=== PATIENT | male | born 1960 ===

== ENCOUNTER 2023-05-20 11:29 | Inpatient (IN) ==
[2023-05-20] MEDS: ACETAMINOPHEN 325 MG TAB PO STA ×2 (12:15→17:39)
[2023-05-20] MEDS: SODIUM CHLORIDE 0.9% 500 ML IV STA (12:16)
--- NOTE | 2023-05-20 12:39 | XRay Report ---
XR chest 1V portable CLINICAL HISTORY: Sepsis TECHNIQUE: Single frontal radiograph of the chest was obtained. Comparison: None available at the time of this dictation. FINDINGS: No lines and tubes are seen. The cardiomediastinal silhouette is normal. The lungs are clear. No evid ence of pleural effusion or pneumothorax. IMPRESSION: No acute abnormalities and in particular no radiographic evidence of pneumonia. ACT 112: Negative or not required by law. Electronically signed by: Carlos Garrison M.D. 05/20/2023 12:38 PM
--- NOTE | 2023-05-20 12:44 | Emergency Department Note ---
Impression & Plan Cellulitis ED Provider Note ED Provider Note NAME: ROSA LEDESMA AGE:62 SEX: Male : 1960 ARRIVES VIA: Private vehicle INFORMANT: Patient ED PROVIDER(s): Marline Cabrales DO CHIEF COMPLAINT: Cellulitis HPI: This is a 62-year-old male presents emergency department due to concern for cellulitis of the left lower extremity. Patient states he has had this several times before. Patient states he felt fine yesterday, and at 4 AM awoke with chills. He states he then felt very tired and then developed a fever in the machine tailer hours between 6 and 630. He states he then began to notice that his left lower extremity was getting red. He states this is the same area where he has had cellulitis previously. He denies any recent trauma or injury. He denies any change in activity. He states the last time he had a lower extremity cellulitis he took Bactrim. He denies any history of MRSA and states he is not a diabetic. PAST MEDICAL HISTORY:See Below PAST SURGICAL HISTORY:See Below FAMILY HISTORY:See Below SOCIAL HISTORY:See Below HOME MEDICATIONS:See Below ALLERGIES:See Below VITALS:See Below PHYSICAL EXAMINATION: GENERAL: alert, well appearing, well nourished, no distress, non-toxic EYE EXAM: normal conjunctiva, PERRL and EOM's grossly intact OROPHARYNX: no exudate, no erythema, lips, buccal mucosa, and tongue normal and mucous membranes are moist NECK: supple, no nuchal rigidity, no adenopathy, non-tender LUNGS: Clear to auscultation. Normal chest wall mechanics, no w/r/r HEART: no murmurs, S1 normal and S2 normal ABDOMEN: abdomen soft, non-tender, normo-active bowel sounds, no masses, no rebound or guarding. SKIN: no rashes, petechiae, orbruising UPPER EXTREMITIES: upper extremities are grossly normal. FROM, nml pulses b/l. LOWER EXTREMITIES: No pitting edema. FROM, nml pulses b/l. NEURO EXAM: Normal sensorium, cranial nerves II-XII grossly intact, normal speech, no facial droop,nogross weakness of arms, no gross weakness of legs. Gross sensation intact. No ataxia. Vital Signs: reviewed and remarkable Differential Diagnosis: cellulitis, abscess, MRSA infection, DVT, necrotizing fasciitis, dermatitis, drug eruption, as well as others were entertained. MEDICAL DECISION MAKING: This is a 62-year-old male who presents due to concern for evolving cellulitis which she has had previously. Patient initially noticed to be febrile and tachycardic on presentation although he denied pain. I suspect his tachycardia was related to his fever. He was otherwise hemodynamically stable. Labs drawn and sent, IV established, EKG performed at bedside and interpreted by me. Patient with obvious cellulitis noted to the anterior aspect of the left lower extremity. This was outlined with a sterile marking pen and recheck frequently to monitor for any changes. Patient had no evidence of any joint involvement or effusion, no evidence of lymphangitic streaking. His heart rate did improve with IV fluids and Tylenol. He was noted to have significant leukocytosis and a procalcitonin was added. This was also markedly elevated. In light of this and concern for evolving sepsis, case discussed with hospitalist team for additional evaluation and management. Patient had been given IV Rocephin here initially. Patient did receive 2 L of IV fluids initially here and then additional maintenance fluids were added to equal a total of 30 mL/KG based on ideal body weight. Consultation(s): 1625: Discussed with Dr. Vegas, [facility] hospitalist team, for additional evaluation and management. ER Treatment Provided: See below Diagnostics Interpreted By Me: -ECG: Sinus tachycardia 101, normal axis, normal intervals, Q waves noted in lead III, and V3, no other acute ischemic changes no -Cardiac Monitoring: An order was placed for continuous cardiac monitoring. The monitor shows a rate of 106 with sinus tachycardia rhythm. -Laboratory studies: As stated above and show below. -Imaging studies: Triage Nursing Note Reviewed Prior/Outside Records Reviewed Past Med/Surg History Medical History Open wound of right ankle Prediabetes CKD stage G3a/A1, GFR 45-59 and albumin creatinine ratio <30 mg/g Venous insufficiency Renal insufficiency Left leg cellulitis Localized osteoarthritis of left knee Localized osteoarthritis of knee Abscess of left leg Tick bite Colon cancer screening Prostate cancer screening Annual physical exam Generalized osteoarthritis Dyshidrosis Allergic rhinitis BPH (benign prostatic hyperplasia) Benign essential hypertension Hypercholesterolemia Surgical History H/O oral surgery History of colonoscopy Family History Mother Asthma Diabetes Father Congestive heart failure (CHF) CAD (coronary atherosclerotic disease) Hypertension Social History Smoking Status: Never smoker Second Hand Exposure: No; Do You Dip or Chew Tobacco: No; Hx Alcohol Use: Yes Alcohol type: beer Hx Substance Use: No Preferred Language: Sami Communication Ability: Effective Line Up Worker Required: No Beliefs That Will Affect Care: None Current Living Situation: Spouse Other Information That Helps Us Care for You: No Feels Safe at Home: Yes Safety Concerns: Feels Safe At This Time Assistive Devices: Denture - Upper Allergies Allergies Allergy/AdvReac Type Severity Reaction Status Date / Time No Known Drug Allergies Allergy Verified 05/20/23 15:51 Home Meds Previous Rx's Medication Instructions Recorded triamcinolone acetonide 0.1 % 1 applic topical BID PRN skin 07/09/22 topical cream irritation #30 grams metoprolol tartrate 50 mg tablet 75 mg (1.5 x 50 mg) PO BID #270 01/28/23 tabs Results & Data (ED) Vital Signs Vital Signs - 24 hr 05/20/23 11:46 05/20/23 12:23 05/20/23 13:10 Temperature 38.2 C H Temperature Source Temporal Artery Scan Pulse Rate 113 H 100 H Pulse Rate [Apical] 97 H Respiratory Rate 16 20 Respiratory Effort / Characteristics Non-Labored Respiratory Depth Normal Blood Pressure 125/64 Blood Pressure [Right Arm] 137/86 Blood Pressure Mean 84 Blood Pressure Mean [Right Arm] 103 Pulse Oximetry 94 96 Oxygen Delivery Method Room Air Sepsis Recent Fever Within 48 Hours Yes Sepsis New/Unexplained Change in Mental Status No Sepsis Action Taken by Nursing Physician Notified 05/20/23 14:29 05/20/23 15:00 05/20/23 16:22 Temperature 37 C Temperature Source Oral Pulse Rate 64 Pulse Rate [Apical] 93 H Respiratory Rate 18 Respiratory Effort / Characteristics Respiratory Depth Blood Pressure Blood Pressure [Right Arm] 125/78 Blood Pressure Mean Blood Pressure Mean [Right Arm] 93 Pulse Oximetry 94 Oxygen Delivery Method Room Air Sepsis Recent Fever Within 48 Hours Sepsis New/Unexplained Change in Mental Status Sepsis Action Taken by Nursing Laboratory Data 05/20/23 12:07 05/20/23 12:07 Lab Results 05/20/23 05/20/23 Range/Units 12:07 16:35 WBC 20.65 H (4.8-10.8) K/ul RBC 6.09 (4.70-6.10) M/uL Hgb 17.6 (14.0-18.0) g/dl Hct 49.8 (42.0-52.0) % MCV 81.8 (80.0-100.0) fL MCH 28.9 (25.0-34.0) pg MCHC 35.3 (32.0-36.0) g/dL RDW Std Deviation 39.8 (36.4-46.3) fL RDW Coeff of Chuck 13.5 (11.5-14.5) % Plt Count 280 (130-400) K/uL MPV 10.2 (9.4-12.4) fL Immature Gran % (Auto) 0.7 % Neut % (Auto) 90.3 % Lymph % (Auto) 3.1 % Liberty % (Auto) 5.6 % Eos % (Auto) 0.0 % Baso % (Auto) 0.3 % Neut # (Auto) 18.63 H (1.40-6.50) K/uL Lymph # (Auto) 0.64 L (1.20-3.40) K/uL Liberty # (Auto) 1.16 H (0.11-0.59) K/uL Eos # (Auto) 0.00 (0.00-0.50) K/uL Baso # (Auto) 0.07 (0.00-0.20) K/uL Immature Gran # (Auto) 0.15 (0.01-0.20) K/uL PT 10.9 (9.0-12.0) Seconds INR 1.0 (0.9-1.1) APTT 28 (21-31) Seconds PTT Ratio 1.0 Sodium 135 L (136-145) mmol/L Potassium 4.0 (3.5-5.1) mmol/L Chloride 98 (98-107) mmol/L Carbon Dioxide 27 (21-32) mmol/L Anion Gap 10 (3-11) BUN 17 (6-23) mg/dl Creatinine 1.42 H (0.6-1.4) mg/dl Est Cr Clr Drug Dosing 69.0 ml/min Est GFR ( Amer) 60.9 ml/min Est GFR (Non-Af Amer) 52.6 ml/min BUN/Creatinine Ratio 12.0 (10-20) Glucose 161 H (70-99(Fasting)) mg/dl Lactate 1.9 1.9 (0.4-2.0) mmol/L Calcium 9.9 (8.6-10.3) mg/dl Magnesium 1.7 (1.7-2.4) mg/dl Total Bilirubin 1.4 H (0.2-1.0) mg/dl AST 29 (13-39) U/L ALT 42 (7-52) U/L Alkaline Phosphatase 44 (34-104) U/L Troponin I High Sens 8.6 (0-20) pg/ml Total Protein 8.8 H (6.0-8.3) gm/dl Albumin 5.0 (3.4-5.0) gm/dl Globulin 3.8 (2.5-4.0) gm/dl Albumin/Globulin Ratio 1.3 (0.9-2) Procalcitonin 1.29 H (0-0.5) ng/ml Administered Medications Enoxaparin Sodium (Enoxaparin Inj 40 Mg/0.4 Ml Syr) 40 mg SQ Q24H LIZA Stop: 06/19/23 20:59 Last Admin: 05/20/23 19:52 Dose: 40 mg Documented By: SJR Parenteral Electrolytes (Plasma-Lyte A Ph 7.4) 1,000 mls @ 100 mls/hr IV .Q10H LIZA Stop: 05/21/23 03:14 Last Admin: 05/20/23 19:53 Dose: 100 mls/hr Documented By: SJR Metoprolol Tartrate (Metoprolol Tartrate 25 Mg Tab) 75 mg PO BID LIZA Stop: 06/19/23 20:59 Last Admin: 05/20/23 19:52 Dose: 75 mg Documented By: SJR Discontinued Medications Acetaminophen (Acetaminophen 325 Mg Tab) 650 mg PO NOW STA Stop: 05/20/23 11:51 Last Admin: 05/20/23 12:15 Dose: 650 mg Documented By: SHIRAG Acetaminophen (Acetaminophen 325 Mg Tab) 650 mg PO NOW STA Stop: 05/20/23 17:35 Last Admin: 05/20/23 17:39 Dose: 650 mg Documented By: LETI Sodium Chloride (Nss) 500 mls @ 999 mls/hr IV .Q31M STA Stop: 05/20/23 12:20 Last Infusion: 05/20/23 12:53 Dose: Infused Documented By: Admin: 05/20/23 12:16 Dose: 999 mls/hr Documented By: LETI Ceftriaxone Sodium (Rocephin) 2,000 mg in 50 mls @ 100 mls/hr IV NOW STA Stop: 05/20/23 13:10 Last Infusion: 05/20/23 14:14 Dose: Infused Documented By: MMYoselin Admin: 05/20/23 13:07 Dose: 100 mls/hr Documented By: LETI Acetaminophen (Ofirmev) 1,000 mg in 100 mls @ 400 mls/hr IV NOW STA Stop: 05/20/23 13:03 Last Admin: 05/20/23 12:52 Dose: Not Given Documented By: LETI Sodium Chloride (Nss) 1,000 mls @ 999 mls/hr IV .Q1H1M ONE Stop: 05/20/23 14:39 Last Infusion: 05/20/23 15:33 Dose: Infused Documented By: Admin: 05/20/23 14:25 Dose: 999 mls/hr Documented By: LETI Sodium Chloride (Nss) 1,000 mls @ 999 mls/hr IV .Q1H1M ONE Stop: 05/20/23 18:05 Last Infusion: 05/20/23 18:56 Dose: Infused Documented By: Admin: 05/20/23 17:39 Dose: 999 mls/hr Documented By: LETI Ibuprofen (Ibuprofen 200 Mg Tab) 200 mg PO NOW STA Stop: 05/20/23 17:04 Last Admin: 05/20/23 17:36 Dose: Not Given Documented By: LETI Imaging Data Radiologist's Impression: Chest X-Ray 05/20/23 11:50 XR chest 1V portable CLINICAL HISTORY: Sepsis TECHNIQUE: Single frontal radiograph of the chest was obtained. Comparison: None available at the time of this dictation. FINDINGS: No lines and tubes are seen. The cardiomediastinal silhouette is normal. The lungs are clear. No evidence of pleural effusion or pneumothorax. IMPRESSION: No acute abnormalities and in particular no radiographic evidence of pneumonia. ACT 112: Negative or not required by law. Electronically signed by: Carlos Garrison M.D. 05/20/2023 12:38 PM Discharge Plan Visit Data Chief Complaint: Infection Stated Complaint: INFECTED L LEG/FEVER ED Provider: Marline Cabrales Discharge Problem: Cellulitis Patient Disposition: Admitted As Inpatient Discharge Instructions Interventions: ED Discharge Assessment Last Done: 05/20/23 18:09
[2023-05-20 12:47] LABS: Partial Thromboplastin Time 28 Seconds (21-31); Prothrombin Time 10.9 Seconds (9.0-12.0)
[2023-05-20] MEDS: ACETAMINOPHEN 1,000 MG/100 ML VIAL IV STA (12:52)
[2023-05-20 13:07] LABS: Albumin Globulin Ratio 1.3 (0.9-2); Bilirubin,Total 1.4 mg/dl (0.2-1.0); Calcium 9.9 mg/dl (8.6-10.3); Est GFR (African American) 60.9 ml/min; Est GFR (Non-African American) 52.6 ml/min; Globulin 3.8 gm/dl (2.5-4.0); Magnesium 1.7 mg/dl (1.7-2.4); Total Protein 8.8 gm/dl (6.0-8.3)
[2023-05-20] MEDS: cefTRIAXone SODIUM 2,000 MG/50 ML BAG IV STA (13:07)
[2023-05-20 13:12] LABS: Troponin I High Sensitivity 8.6 pg/ml (0-20)
[2023-05-20 13:19] LABS: Hematocrit (blood only) 49.8 % (42.0-52.0); Hemoglobin 17.6 g/dl (14.0-18.0); Mean Corpuscular Hemoglobin 28.9 pg (25.0-34.0); Mean Corpuscular Hgb Conc 35.3 g/dL (32.0-36.0); Mean Corpuscular Volume 81.8 fL (80.0-100.0); Mean Platelet Volume 10.2 fL (9.4-12.4); Platelet Count 280 K/uL (130-400); RDW Coefficient of Variation 13.5 % (11.5-14.5); RDW Standard Deviation 39.8 fL (36.4-46.3); Red Blood Count 6.09 M/uL (4.70-6.10); White Blood Count 20.65 K/ul (4.8-10.8)
[2023-05-20 13:53] LABS: Basophils # (auto) 0.07 K/uL (0.00-0.20); Basophils % (auto) 0.3 %; Immature Granulocytes # (auto) 0.15 K/uL (0.01-0.20); Immature Granulocytes % (auto) 0.7 %; Lymphocytes # (auto) 0.64 K/uL (1.20-3.40); Lymphocytes % (auto) 3.1 %; Monocytes # (auto) 1.16 K/uL (0.11-0.59); Monocytes % (auto) 5.6 %; Neutrophils # (auto) 18.63 K/uL (1.40-6.50); Neutrophils % (auto) 90.3 %
[2023-05-20] MEDS: SODIUM CHLORIDE 0.9% 1,000 ML IV ONE ×2 (14:25→17:39)
--- NOTE | 2023-05-20 16:54 | History & Physical Report ---
Date of Service May 20, 2023 Assessment & Plan (1) Sepsis: Plan: -Admit to med/tele -Currently stable -Presented to the ED with acute onset of left leg cellulitis, fever, and chills at 0400 this am -Has remained stable in the ED but met sepsis criteria with fever of 38.2C, tachycardia of 113, leukocytosis of 20K, and source being his LLE cellulitis -Lactate is WNL, procal elevated at 1.29 -Received 1.5L NSS, a dose of Ceftriaxone, and 1gm IV tylenol in the ED -Will conitnue with Ceftriaxone at this time as patient and his report some improvement in the LLE cellulitis since receiving his first dose in the ED -Will give another 1L NSS now, then will start maintenance Plasmalyte x 1 bag for now -Continue prn tylenol for pain/fever -Follow blood cultures obtained in the ED -Border marked by ED staff, continue to monitor -SQ lovenox for DVT PPX -HH diet -AM CBC, BMP (2) Left leg cellulitis: Plan: -See sepsis (3) Benign essential hypertension: Plan: -Can continue metoprolol as he is hemodynamically stable Plan The patient was discussed with Dr. Vegas at the time of admission History of Present Illness Chief Complaint: Left leg swelling, fever, chills Primary Care Provider: Tigre Robledo MD Terry is a 62 year old male with a PMH significant for recurrent left LE cellulitis, prediabetes, HTN who presented to the [facility] ED on 05/20/23 with acute onset of left LE swelling/erythema/pain, fever, and chills which woke him from sleep at 0400 this am. On arrival to the ED he was noted to be febrile at 38.2C and tachycardic at 113 but was otherwise stable. Labs were significant for a leukocytosis of 20 with neutrophile predominance of 18, lactate of 1.9, and procal of 1.29. Chest xray was read as negative for acute findings. Prior to admission the patient was given 2gm Ceftriaxone, 1.5L NSS, and 1gm IV tylenol. At the time of the exam the patient was sitting in bed, with rigors, but in no acute distress. History was obtained from the patient and his who is bedside. They confirm the above history. This is the 5th or 6th time that he has had cellulitis in the LLE but he has never required hospitalization. He did have a spider bite in the LLE, near the site of infection years ago. He had an abscess drained and packed after the spider bite with his PCP. They sate that the area of cellulitis today is improving after receiving the first dose of Ceftriaxone. Denies current chest pain, SOB, abd pain, nausea, vomiting, diarrhea, dysuria, hematuria, melena, and recent trauma. He is a Full code. Please refer to Dr Vegas's attestation for any changes to the treatment plan Allergies Allergy/AdvReac Type Severity Reaction Status Date / Time No Known Drug Allergies Allergy Verified 05/20/23 15:51 Home Medications Medication Instructions Recorded Confirmed Type triamcinolone acetonide 0.1 % 1 applic topical BID PRN skin 07/09/22 05/20/23 Rx topical cream irritation #30 grams metoprolol tartrate 50 mg tablet 75 mg (1.5 x 50 mg) PO BID #270 01/28/23 05/20/23 Rx tabs Past Med/Surg History Medical History Open wound of right ankle Prediabetes CKD stage G3a/A1, GFR 45-59 and albumin creatinine ratio <30 mg/g Venous insufficiency Renal insufficiency Left leg cellulitis Localized osteoarthritis of left knee Localized osteoarthritis of knee Abscess of left leg Tick bite Colon cancer screening Prostate cancer screening Annual physical exam Generalized osteoarthritis Dyshidrosis Allergic rhinitis BPH (benign prostatic hyperplasia) Benign essential hypertension Hypercholesterolemia Surgical History H/O oral surgery History of colonoscopy Family History Mother Asthma Diabetes Father Congestive heart failure (CHF) CAD (coronary atherosclerotic disease) Hypertension Social History Smoking Status: Never smoker Second Hand Exposure: No; Do You Dip or Chew Tobacco: No; Hx Alcohol Use: Yes Alcohol type: beer Hx Substance Use: No Preferred Language: Guyanese Communication Ability: Effective Film Maker Required: No Beliefs That Will Affect Care: None Current Living Situation: Spouse Other Information That Helps Us Care for You: No Feels Safe at Home: Yes Safety Concerns: Feels Safe At This Time Assistive Devices: Denture - Upper Physical Exam Physical Exam: Physical Exam: General: In no acute distress, stated age, ill appearing with rigors but non- toxic HEENT: Normocephalic, atraumatic, no scleral icterus, pupils around round, symmetrical, and reactive to light, dry mucus membranes, trachea midline, no thyromegaly Chest/Pulm: No respiratory distress, symmetrical chest expansion, clear breath sounds throughout Cardiac: RRR, no murmurs noted Abdomen: Negative for ascites and bruising, normoactive bowel sounds, soft, non-tender to palpation throughout Musculoskeletal: Symmetrical and without signs of acute trauma, upper and lower extremities with full ROM, no atrophy, spasticity, or flaccidity Extremities: Radial, dorsalis pedis, and posterior tibial pulses are intact and symmetrical, no edema noted in the BL LE's Skin: Patient with erythema over the lateral portion of the left conner which was outlined by by the ED staff and has not spread further at this time, erythema does not extend into the left ankle or left knee Neuro: Alert and oriented to person, place, month, year, and president, no focal defects, current tremors due to fever Psych: No acute distress, calm and cooperative during the exam Results & Data Results & Data Vital Signs (Past 12 Hours) Vital Signs Temp Pulse Pulse Resp BP BP Pulse Ox 05/20/23 16:22 64 05/20/23 15:00 93 H 18 125/78 94 05/20/23 14:29 37 C 05/20/23 13:10 97 H 20 137/86 96 05/20/23 12:23 100 H 05/20/23 11:46 38.2 C H 113 H 16 125/64 94 O2 Del Method 05/20/23 16:22 05/20/23 15:00 Room Air 05/20/23 14:29 05/20/23 13:10 Room Air 05/20/23 12:23 05/20/23 11:46 Laboratory Results Abnormal lab results 05/20/23 Range/Units 12:07 WBC 20.65 H (4.8-10.8) K/ul Neut # (Auto) 18.63 H (1.40-6.50) K/uL Lymph # (Auto) 0.64 L (1.20-3.40) K/uL Craig # (Auto) 1.16 H (0.11-0.59) K/uL Sodium 135 L (136-145) mmol/L Creatinine 1.42 H (0.6-1.4) mg/dl Glucose 161 H (70-99(Fasting)) mg/dl Total Bilirubin 1.4 H (0.2-1.0) mg/dl Total Protein 8.8 H (6.0-8.3) gm/dl Procalcitonin 1.29 H (0-0.5) ng/ml Diagnostic Findings Chest X-Ray 05/20/23 11:50 XR chest 1V portable CLINICAL HISTORY: Sepsis TECHNIQUE: Single frontal radiograph of the chest was obtained. Comparison: None available at the time of this dictation. FINDINGS: No lines and tubes are seen. The cardiomediastinal silhouette is normal. The lungs are clear. No evidence of pleural effusion or pneumothorax. IMPRESSION: No acute abnormalities and in particular no radiographic evidence of pneumonia. ACT 112: Negative or not required by law. Electronically signed by: Carlos Garrison M.D. 05/20/2023 12:38 PM ECG Additional Comments: Sinus tachycardia Inferior infarct , age undetermined Anterior infarct , age undetermined Abnormal ECG No previous ECGs available Code Status & VTE Plan Code Status Full code VTE Prophylaxis Plan VTE Prophylaxis will be ordered: Yes Supervising Physician Co-Signing Physician Notes I personally saw and examined the patient. I verified all nichole points and agree with Mitchel Izquierdo PA-C with the following exceptions and/or additions: 62 year old male presents to the ER with fever, chills, left leg erythema. 5-6 prior episodes resolved with antibiotics although this is the worst occasion. Last episode in August last year. No known MRSA. Reportedly already minimally improved since starting ceftriaxone in the ER. O/E A&Ox2, HS increased rate, regular rhythm, no murmurs, Chest CTAB, Abdo SNT, left lower extremity erythema/warmth/swelling outlined A/P Sepsis - source cellulitis, UA not yet collected. No history of MRSA and possibly some improvement already with ceftriaxone therefore will continue on this alone since he is hemodynamically stable. Follow up blood cultures. PG Care Time/CCT Total # of Minutes Spent Total Time Spent with Patient: Total time spent is greater than 50% in coordination of care (as documented) at patient's floor/unit and/or counseling patient: [place] [address] INT INP/OBS CARE MIN Patient Type Established Medical Decision Making High Complexity Diagnoses Sepsis A41.9 Left leg cellulitis L03.116 Benign essential hypertension I10
[2023-05-20] MEDS: IBUPROFEN 200 MG TAB PO STA (17:36)
[2023-05-20] MEDS: ENOXAPARIN INJ 40 MG/0.4 ML SYR SQ SCH (19:52)
[2023-05-20] MEDS: METOPROLOL TARTRATE 25 MG TAB PO SCH (19:52)
[2023-05-20] MEDS: PLASMA-LYTE A 1,000 ML IV SCH (19:53)
[2023-05-21 07:09] LABS: Basophils # (auto) 0.04 K/uL (0.00-0.20); Basophils % (auto) 0.3 %; Eosinophils # (auto) 0.02 K/uL (0.00-0.50); Eosinophils % (auto) 0.1 %; Hemoglobin 14.6 g/dl (14.0-18.0); Immature Granulocytes # (auto) 0.06 K/uL (0.01-0.20); Immature Granulocytes % (auto) 0.4 %; Lymphocytes # (auto) 1.27 K/uL (1.20-3.40); Lymphocytes % (auto) 9.5 %; Mean Corpuscular Hemoglobin 28.3 pg (25.0-34.0); Mean Corpuscular Volume 83.5 fL (80.0-100.0); Mean Platelet Volume 9.9 fL (9.4-12.4); Monocytes # (auto) 1.17 K/uL (0.11-0.59); Monocytes % (auto) 8.7 %; Neutrophils # (auto) 10.87 K/uL (1.40-6.50); Platelet Count 224 K/uL (130-400); RDW Coefficient of Variation 13.6 % (11.5-14.5); RDW Standard Deviation 41.5 fL (36.4-46.3); Red Blood Count 5.15 M/uL (4.70-6.10); White Blood Count 13.43 K/ul (4.8-10.8)
[2023-05-21 07:10] LABS: BUN Creatinine Ratio 11.1 (10-20); Calcium 8.9 mg/dl (8.6-10.3); Creatinine Clr Calc Pharmacy 68.3 ml/min; Est GFR (African American) 59.9 ml/min; Est GFR (Non-African American) 51.7 ml/min; Potassium 3.8 mmol/L (3.5-5.1)
[2023-05-21 08:59] LABS: Estimated Average Glucose 134 mg/dl; Hemoglobin A1C 6.3 % (4.5-5.6)
[2023-05-21] MEDS: ACETAMINOPHEN 325 MG TAB PO PRN (11:52)
[2023-05-21] MEDS: cefTRIAXone SODIUM 2,000 MG in DEXTROSE 5 % MINI-B 50 ML IV SCH (12:36)
--- NOTE | 2023-05-21 15:52 | Hospitalist Progress Note ---
Date of Service May 21, 2023 Assessment & Plan (1) Sepsis: Plan: -Presented to the ED with acute onset of left leg cellulitis, fever, and chills at 0400 this am -Has remained stable in the ED but met sepsis criteria with fever of 38.2C, tachycardia of 113, leukocytosis of 20K, and source being his LLE cellulitis -Lactate is WNL, procal elevated at 1.29 -Received 1.5L NSS, a dose of Ceftriaxone, and 1gm IV tylenol in the ED -Continue ceftriaxone Clinically improving Discontinue IV fluid -Continue prn tylenol for pain/fever -Follow blood cultures obtained in the ED -Improving cellulitis Improving leukocytosis. White count down from 20-13 Ordered A1c (2) Left leg cellulitis: Plan: -See sepsis (3) Benign essential hypertension: Plan: -Can continue metoprolol as he is hemodynamically stable Admission and Anticipated Discharge Date Admission Date: May 20, 2023 Subjective Patient feels better. Leg swelling and redness is improving. Review of Systems Review of Systems: All systems reviewed & are unremarkable except as noted in Subjective Physical Exam Physical Exam: General: Awake, conversant Heart: S1, S2/regular rate and rhythm, no murmur rubs or gallops Lungs: Clear to auscultation bilaterally. Normal effort Abdomen: Soft/nontender/nondistended. No hepatosplenomegaly Extremities: No clubbing/cyanosis. Left leg cellulitis improving, fading redness and improving edema Behavior: Appropriate, cooperative Results & Data Results & Data Vital Signs (Past 12 Hours) Vital Signs Temp Pulse Pulse Resp BP Pulse Ox O2 Del Method 05/21/23 15:22 79 05/21/23 11:42 37.9 C H 84 16 126/78 96 Room Air 05/21/23 08:00 95 H 05/21/23 07:39 38.0 C H 97 H 16 163/74 H 95 Room Air Laboratory Results Abnormal lab results 05/21/23 Range/Units 05:35 WBC 13.43 H (4.8-10.8) K/ul Neut # (Auto) 10.87 H (1.40-6.50) K/uL Andrews # (Auto) 1.17 H (0.11-0.59) K/uL Sodium 132 L (136-145) mmol/L Creatinine 1.44 H (0.6-1.4) mg/dl Glucose 135 H (70-99(Fasting)) mg/dl Hemoglobin A1c 6.3 H (4.5-5.6) % PG Care Time/CCT Total # of Minutes Spent Total Time Spent with Patient: Total time spent is greater than 50% in coordination of care (as documented) at patient's floor/unit and/or counseling patient: Coding Level of Care Code 58171 SUB INP/OBS CARE 2/35MIN Diagnoses Sepsis A41.9 Left leg cellulitis L03.116 Benign essential hypertension I10
[2023-05-22 06:12] LABS: Basophils # (auto) 0.05 K/uL (0.00-0.20); Basophils % (auto) 0.5 %; Eosinophils % (auto) 2.2 %; Hematocrit (blood only) 43.5 % (42.0-52.0); Hemoglobin 15.1 g/dl (14.0-18.0); Immature Granulocytes # (auto) 0.04 K/uL (0.01-0.20); Immature Granulocytes % (auto) 0.4 %; Lymphocytes # (auto) 1.75 K/uL (1.20-3.40); Lymphocytes % (auto) 18.9 %; Mean Corpuscular Hemoglobin 28.9 pg (25.0-34.0); Mean Corpuscular Hgb Conc 34.7 g/dL (32.0-36.0); Mean Corpuscular Volume 83.2 fL (80.0-100.0); Mean Platelet Volume 9.9 fL (9.4-12.4); Monocytes # (auto) 0.96 K/uL (0.11-0.59); Monocytes % (auto) 10.4 %; Neutrophils # (auto) 6.25 K/uL (1.40-6.50); Neutrophils % (auto) 67.6 %; Platelet Count 212 K/uL (130-400); RDW Coefficient of Variation 13.8 % (11.5-14.5); RDW Standard Deviation 41.5 fL (36.4-46.3); Red Blood Count 5.23 M/uL (4.70-6.10); White Blood Count 9.25 K/ul (4.8-10.8)
[2023-05-22 06:24] LABS: BUN Creatinine Ratio 11.5 (10-20); Creatinine Clr Calc Pharmacy 75.1 ml/min; Est GFR (African American) 67.2 ml/min; Est GFR (Non-African American) 57.9 ml/min; Potassium 3.9 mmol/L (3.5-5.1)
--- NOTE | 2023-05-22 10:22 | Discharge Summary ---
Date of Service May 22, 2023 Admission HPI Per Admitting Provider Terry is a 62 year old male with a PMH significant for recurrent left LE cellulitis, prediabetes, HTN who presented to the [facility] ED on 05/20/23 with acute onset of left LE swelling/erythema/pain, fever, and chills which woke him from sleep at 0400 this am. On arrival to the ED he was noted to be febrile at 38.2C and tachycardic at 113 but was otherwise stable. Labs were significant for a leukocytosis of 20 with neutrophile predominance of 18, lactate of 1.9, and procal of 1.29. Chest xray was read as negative for acute findings. Prior to admission the patient was given 2gm Ceftriaxone, 1.5L NSS, and 1gm IV tylenol. At the time of the exam the patient was sitting in bed, with rigors, but in no acute distress. History was obtained from the patient and his who is bedside. They confirm the above history. This is the 5th or 6th time that he has had cellulitis in the LLE but he has never required hospitalization. He did have a spider bite in the LLE, near the site of infection years ago. He had an absces s drained and packed after the spider bite with his PCP. They sate that the area of cellulitis today is improving after receiving the first dose of Ceftriaxone. Denies current chest pain, SOB, abd pain, nausea, vomiting, diarrhea, dysuria, hematuria, melena, and recent trauma. He is a Full code. Please refer to Dr Vegas's attestation for any changes to the treatment plan Admission Exam Per Admitting Provider General: In no acute distress, stated age, ill appearing with rigors but non- toxic HEENT: Normocephalic, atraumatic, no scleral icterus, pupils around round, symmetrical, and reactive to light, dry mucus membranes, trachea midline, no thyromegaly Chest/Pulm: No respiratory distress, symmetrical chest expansion, clear breath sounds throughout Cardiac: RRR, no murmurs noted Abdomen: Negative for ascites and bruising, normoactive bowel sounds, soft, non- tender to palpation throughout Musculoskeletal: Symmetrical and without signs of acute trauma, upper and lower extremities with full ROM, no atrophy, spasticity, or flaccidity Extremities: Radial, dorsalis pedis, and posterior tibial pulses are intact and symmetrical, no edema noted in the BL LE's Skin: Patient with erythema over the lateral portion of the left conner which was outlined by by the ED staff and has not spread further at this time, erythema does not extend into the left ankle or left knee Neuro: Alert and oriented to person, place, month, year, and president, no focal defects, current tremors due to fever Psych: No acute distress, calm and cooperative during the exam Principal Diagnosis Sepsis due to left lower extremity cellulitis Prediabetes Discharge Exam General: Awake, conversant Heart: S1, S2/regular rate and rhythm, no murmur rubs or gallops Lungs: Clear to auscultation bilaterally. Normal effort Abdomen: Soft/nontender/nondistended. No hepatosplenomegaly Extremities: No clubbing/cyanosis. Left leg cellulitis improving, fading rednes s and improving edema Behavior: Appropriate, cooperative Discharge Data Allergies Allergy/AdvReac Type Severity Reaction Status Date / Time No Known Drug Allergies Allergy Verified 05/20/23 15:51 Hospital Course (1) Sepsis: -Presented to the ED with acute onset of left leg cellulitis, fever, and chills at 0400 this am -Has remained stable in the ED but met sepsis criteria with fever of 38.2C, tachycardia of 113, leukocytosis of 20K, and source being his LLE cellulitis -Lactate is WNL, procal elevated at 1.29 -Received 1.5L NSS, a dose of Ceftriaxone, and 1gm IV tylenol in the ED Switch to p.o. Keflex Clinically improving Blood cultures remain negative -Improving cellulitis .Leukocytosis resolved (2) Left leg cellulitis: -See sepsis (3) Benign essential hypertension: -Can continue metoprolol as he is hemodynamically stable (4) Prediabetes: A1c returned at 6.3 Explained to the patient that he is a prediabetic which predisposes him to recurrent cellulitis. Advised on lifestyle modification, weight loss Plan Discharge today Total Time Total Time Spent Total Time Spent (In Minutes): 35 Discharge Plan Discharge Items Patient Disposition: Home - Self-Care Reason For Visit: SEPSIS, LLE CELLULITIS Discharge Diagnosis: Sepsis due to left lower extremity cellulitis Prediabetes Activity: Resume your previous activity Non-emergency contact: Primary Care Provider Call non-emergency contact if: you have any medication questions and your symptoms worsen Follow-up/Referrals: Tigre Robledo MD [Primary Care Provider] - 06/01/23 11:30 am Diet: Carb Consistent or DM2 Addtl Attending Provider Instructions: Advised to note that you have cellulitis and will be discharged on oral antibiotics to complete the course Advised to note that you are now prediabetic with a HbA1c of 6.3. This means that you will need to make lifestyle modification with diet and exercise as you are heading towards being a diabetic patient Being a prediabetic predisposes you to recurrent cellulitis. Pending Studies at Discharge: No Stand-Alone Forms: My [facility] Medications and DC Order Prescriptions: New cephalexin 500 mg capsule 500 mg PO BID 5 Days Qty: 10 0RF Continued metoprolol tartrate 50 mg tablet 75 mg PO BID Qty: 270 3RF triamcinolone acetonide 0.1 % cream 1 applic topical BID PRN (Reason: skin irritation) Qty: 30 5RF Discharge Orders: Discharge Order (Routine); Ordered 05/22/23 Ordered By: Kenny Murillo/Other Patient Handouts: Prediabetes, 5 Steps for Eating Healthier Admission Data Admit Date/Time: 05/20/23 16:53 Attending Provider: Kenny Dinh Admit Provider: Joshua Vegas Primary Care Provider: Tigre Robledo Other Interventions: Discharge Summary Assessment (RN) Last Done: 05/22/23 11:22 Coding Level of Care Code 20664 INP/OBS DISCH >30 MIN Diagnoses Sepsis A41.9 Left leg cellulitis L03.116 Benign essential hypertension I10 Prediabetes R73.03
--- NOTE | 2023-05-23 00:45 | Electrocardiogram Report ---
Test Reason : Blood Pressure : / mmHG Vent. Rate : 101 BPM Atrial Rate : 101 BPM P-R Int : 172 ms QRS Dur : 080 ms QT Int : 340 ms P-R-T Axes : 026 -02 026 degrees QTc Int : 440 ms Sinus tachycardia Inferior infarct , age undetermined Anterior infarct , age undetermined Abnormal ECG No previous ECGs available Confirmed by Lopez Leger ([id number]) on 05/23/2023 12:45:22 AM Referred By: Confirmed By:Lopez Leger
== END 2023-05-22 13:15 | disposition home or self-care (01) | DRG 872 ==
LOC: ED 11:29 → EDINP 16:53 → SUATTDRO 16:53 → 2N 18:09